=== PATIENT | female | born 1975 | race Caucasian/White ===

== ENCOUNTER 2023-04-20 14:17 | Outpatient (CLI) | payer BC, SELFPAY ==
--- NOTE | ~2023-04-20 | MR_ITS ---
MRI of the cervical spine Clinical History: Upper extremity paresthesias, neck pain Technique: Axial T2-weighted and gradient images, and sagittal T1-weighted, T2-weighted, and STIR aide ges were acquired. Findings: There is minimal reversal of the normal cervical lordosis. No fracture or subluxation seen. No suspicious bone marrow signal abnormality seen. At C2-C3, there is minimal disc osteophyte complex. No spinal canal stenosis, cord compression, or ne ural foraminal narrowing. At C3-C4, there is minimal disc osteophyte complex with minimal facet arthropathy. No spinal canal st enosis, cord compression, or neural foraminal narrowing. At C4-C5, there is minimal disc osteophyte complex. No spinal canal stenosis, cord compression, or ne ural foraminal narrowing. At C5-C6, there is mild disc osteophyte complex, most prominent at the right paracentral to right for aminal region. No saroj spinal canal stenosis or cord compression. Possible minimal right neural fora nurys compromise. Left neural foramen preserved. At C6-C7, there is disc osteophyte complex which mildly flattens the ventral cord. Bilateral neural f oramina are preserved. No abnormal signal seen in the spinal cord. Impression: Disc osteophyte complex at C6-C7 which mildly flattens the ventral cord. Suspected minimal right neural foraminal compromise at C5-C6. Additional minimal degenerative changes, as above. Reviewed, dictated and finalized at [facility]. LLMENT REPRESENTATIVE Impression: Disc osteophyte complex at C6-C7 which mildly flattens the ventral cord. Suspected minimal right neural foraminal compromise at C5-C6. Additional minimal degenerative changes, as above.
== END 2023-04-20 14:18 ==
LOC: GOSHIMG 14:21
PROVIDERS: PCP Family Medicine; Visit Provider Family Medicine
DX: R20.2 Paresthesia of skin (principal); M25.78 Osteophyte, vertebrae
CPT/HCPCS: 72141